=== PATIENT | female | born 1990 | race American Indian/Alaskan Native ===

== ENCOUNTER 2018-05-26 10:21 | Emergency (ER) | payer OTHER ==
[2018-05-26 10:45] VITALS: BP 119/82
[2018-05-26] MEDS ORDERED: ZOFRAN ODT PO ONE (11:15)
[2018-05-26] MEDS ORDERED: ZITHROMAX PO ONE (11:15)
[2018-05-26] MEDS ORDERED: ROCEPHIN IM ONE (11:15)
[2018-05-26] MEDS ORDERED: XYLOCAINE 1% MPF 5 mL INFILTRATI ONE (11:15)
--- NOTE | 2018-05-26 11:21 | Emergency Department Report ---
ED Female HPI - General Chief complaint: Urogenital-Female Stated complaint: LOWER ABD PAIN/ITCHING Time Seen by Provider: 05/26/18 11:14 Source: patient Mode of arrival: Ambulatory Limitations: No Limitations - History of Present Illness Initial comments: Ms. Pastrana is a 27-year-old female who was recently treated for STI. However she continued to have sex with her infected partner. Consequently, today, she requests another treatment. She currently does not have any symptoms. However she did receive her positive chlamydia result recently although she was preemptively treated. She does not use barrier protection. MD Complaint: possible STD -: week(s) (1) Severity scale (0 -10): 0 Are you Now?: No Associated Symptoms: denies other symptoms - Related Data Previous Rx's Medication Instructions Recorded Last Taken Type Ibuprofen [Motrin] 600 mg PO Q8H PRN #30 tablet 02/10/15 Unknown Rx methOCARBAMOL [Robaxin TAB] 500 mg PO BID #10 tab 02/10/15 Unknown Rx traMADol [Ultram] 50 mg PO Q6HR PRN #14 tablet 02/10/15 Unknown Rx Allergies Allergy/AdvReac Type Severity Reaction Status Date / Time No Known Allergies Allergy Verified 02/10/15 17:20 ED Review of Systems ROS: Stated complaint: LOWER ABD PAIN/ITCHING Other details as noted in HPI Constitutional: denies: fever, malaise Gastrointestinal: denies: abdominal pain, nausea, vomiting Genitourinary: denies: urgency, dysuria, frequency, hematuria, discharge, dyspareunia Skin: denies: rash, lesions ED Past Medical Hx - Past Medical History Previous Medical History?: No - Surgical History Past Surgical History?: No - Social History Smoking Status: Never Smoker - Medications Home Medications: Home Medications Medication Instructions Recorded Confirmed Last Taken Type Ibuprofen [Motrin] 600 mg PO Q8H PRN #30 tablet 02/10/15 Unknown Rx methOCARBAMOL [Robaxin TAB] 500 mg PO BID #10 tab 02/10/15 Unknown Rx traMADol [Ultram] 50 mg PO Q6HR PRN #14 tablet 02/10/15 Unknown Rx ED Physical Exam - General Limitations: No Limitations General appearance: alert, in no apparent distress - Head Head exam: Present: atraumatic, normocephalic - Eye Eye exam: Present: normal appearance - ENT ENT exam: Present: mucous membranes moist - Neck Neck exam: Present: normal inspection - Respiratory Respiratory exam: Absent: respiratory distress - Extremities Exam Extremities exam: Present: normal inspection - Neurological Exam Neurological exam: Present: alert, oriented X3 - Psychiatric Psychiatric exam: Present: normal affect, normal mood - Skin Skin exam: Present: warm, dry, intact, normal color. Absent: rash ED Course Vital Signs 05/26/18 10:36 Temperature 97.8 F Pulse Rate 71 Blood Pressure 119/82 O2 Sat by Pulse 96 Oximetry ED Medical Decision Making - Medical Decision Making STD exposure with recent +chlamydia test Patient was treated with ceftriaxone and azithromycin. Given STD education. Critical care attestation.: If time is entered above; I have spent that time in minutes in the direct care of this critically ill patient, excluding procedure time. ED Disposition Clinical Impression: History of chlamydia, STD exposure Disposition: DC-01 TO HOME OR SELFCARE Is pt being admited?: No Does the pt Need Aspirin: No Condition: Stable Instructions: Sexually Transmitted Diseases (ED), Chlamydia Infection (ED), Safe Sex (ED) Referrals: [facility] [Outside] - 3-5 Days
[2018-05-26 11:23] LABS: Bilirubin,Urine NEG (Negative); Blood,Urine NEG (Negative); Color,Urine Yellow (Yellow); Mucus,Urine 3+ /HPF; Protein,Urine <15 mg/dL mg/dL (Negative); Urobilinogen,Urine < 2.0 mg/dL (<2.0)
[2018-05-26 11:28] LABS: HCG Qualitative,Urine Negative (Negative)
== END 2018-05-26 11:55 | disposition home or self-care (01) ==
LOC: ED 10:21
DX: Z20.2 Contact with and (suspected) exposure to infections with a predominantly sexual mode of transmission (principal)
CPT/HCPCS: 81001; 81025; 87591; 96372; 99283; J0696; Q0162

== ENCOUNTER 2018-10-15 11:35 | Emergency (ER) | payer SELFPAY ==
[2018-10-15 11:55] VITALS: BP 115/73
--- NOTE | 2018-10-15 12:00 | Emergency Department Report ---
Chief Complaint: Abdominal Pain Stated Complaint: ABD PAIN Time Seen by Provider: 10/15/18 11:49 - HPI History of Present Illness: This is a 27-year-old female nontoxic, well in appearance with no signs of distress presents to the ED for STD check. Patient stated that she had unproctected sex and is concerned about STD. Patient stated she is asymptotic. Denies any vaginal discharge, vaginal pain, or swelling. Patient denies any urinary symptoms. Patient denies any fever, chills, headache, nausea, vomiting, chest pain or shortness of breathe. denies any other symptoms or complaints. Denies any allergies or PMH. - Exam Physical Exam: no abdominal pain. No pelvic pain. Denies any back pain. MSE screening note: Focused history and physical exam performed. Due to findings the following was ordered: ED Medical Decision Making - Medical Decision Making This is a 27-year-old female that presents with nonmedical emergency complaint. Patient is just requested for a STD test. Patient denies any symptoms. Patient was approached by registration for insurance or copay but patient refused. Patient was given referral sheet that has all clinics for STD testing. I gave patient many different referrals to follow-up with STD concerns. Patient was instructed to Follow-up with a primary care doctor in 3-5 days or if symptoms worsen and continue return to emergency room as soon as possible. At time of discharge, the patient does not seem toxic or ill in appearance. No acute signs of distress noted. Patient agrees to discharge treatment plan of care. No further questions noted by the patient. ED Disposition for MSE Clinical Impression: Possible exposure to STD Disposition: - MED SCREENING EXAM-LEFT Is pt being admited?: No Does the pt Need Aspirin: No Condition: Stable Instructions: Safe Sex (ED) Additional Instructions: Follow-up with a primary care doctor/health care department/[facility] in 3-5 days or if symptoms worsen and continue return to the emergency department as soon as possible. Referrals: PRIMARY MD PATRICA [Referring] - 3-5 Days SHILPA CRUZ MD [Staff Physician] - 3-5 Days [facility] [Outside] - [facility] Days [facility] - [facility]5 Days
== END 2018-10-15 12:00 | disposition left against medical advice (07) ==
LOC: ED 11:35
DX: Z20.2 Contact with and (suspected) exposure to infections with a predominantly sexual mode of transmission (principal)
CPT/HCPCS: 99281